=== PATIENT | male | born 1950 | race Caucasian/White ===

== ENCOUNTER 2016-12-20 17:07 | Inpatient (IN) | payer BC, OTHER ==
[~2016-12-20] VITALS: Ht 185.4 cm; Wt 84.8 kg
--- NOTE | 2016-12-20 18:00 | DIAGNOSTIC IMAGING REPORT ---
CHEST ONE VIEW PORTABLE CLINICAL HISTORY: Atypical chest pain. Arrhythmia. COMPARISON STUDY: No previous studies for comparison. FINDINGS: The cardiac and mediastinal contours are normal. There is no evidence of focal pulmonary consolidation. There is no evidence of failure. No pleural effusions are visualized.[ There is possible underlying emphysema. Differential attenuation of the hemithoraces is felt to be secondary to technical factors. IMPRESSION: No active disease in the chest. Electronically signed by: Marvel Fierro M.D. 12/20/2016 5:59 PM Dictated Date/Time: 12/20/2016 5:58 PM
[2016-12-20 18:01] LABS: BASO % 0.3 %; BASO ABS # 0.02 K/uL (0-0.2); COMPLETE YES; HEMATOCRIT 43.8 % (42-52); LYMPH % 26.1 %; LYMPH ABS # 1.91 K/uL (1.2-3.4); MEAN CELL VOLUME 93.8 fL (80-100); MEAN CORPUSCULAR HEMOGLOBIN 33.8 pg (25-34); MEAN CORPUSCULAR HGB CONC 36.1 g/dl (32-36); MEAN PLATELET VOLUME 9.7 fL (7.4-10.4); MONO % 12.6 %; PLATELET COUNT 283 K/uL (130-400); RED BLOOD COUNT 4.67 M/uL (4.7-6.1); WHITE BLOOD COUNT 7.31 K/uL (4.8-10.8)
[2016-12-20 18:15] LABS: BLOOD UREA NITROGEN 19 mg/dl (7-18); BUN/CREATININE RATIO 15.6 (10-20); CALCIUM 9.2 mg/dl (8.5-10.1); CARBON DIOXIDE 27 mmol/L (21-32); CHLORIDE 105 mmol/L (98-107); GLUCOSE 79 mg/dl (70-99); POTASSIUM 4.2 mmol/L (3.5-5.1); SODIUM 140 mmol/L (136-145)
[2016-12-20 18:20] LABS: CKMB/CK RATIO 1.2 (0-3.0)
[2016-12-20] MEDS ORDERED: FLEC100T21 PO (18:28)
[2016-12-20] MEDS ORDERED: ATOR10TA82 PO (18:28)
[2016-12-20] MEDS ORDERED: LISI-461 PO (18:28)
[2016-12-20] MEDS ORDERED: XRL10 PO (18:28)
[2016-12-20] MEDS ORDERED: ASPIRIN 81 MG CHEW PO STA (18:55)
[2016-12-20] MEDS ORDERED: FLECAINIDE ACETATE 100 MG TAB PO SCH (20:00)
[2016-12-20] MEDS ORDERED: ONDANSETRON INJ 2 MG/ML 2 ML VIAL IV PRN (23:15)
[2016-12-20] MEDS ORDERED: ACETAMINOPHEN 325 MG TAB PO PRN (23:15)
[2016-12-20] MEDS ORDERED: POLYETHYLENE (MIRALAX) 17 GM PACK PO PRN (23:15)
[2016-12-20] MEDS ORDERED: MAGNESIUM HYDROXIDE SUSP 30 ML UDC PO PRN (23:15)
[2016-12-20] MEDS ORDERED: ENOXAPARIN 1 MG/KG SQ SCH (23:15)
[2016-12-20] MEDS ORDERED: ALUMINUM/MAGNESIUM/SIMETH (MAALOX MAX) 30 ML UDC PO PRN (23:15)
[2016-12-20] MEDS ORDERED: MoRPHine SULFATE 2 MG/ML CARP IV PRN (23:15)
--- NOTE | 2016-12-20 23:22 | History and Physical ---
History & Physical Date & Time of Service: Dec 20, 2016 at 23:14 Chief Complaint: Irregular Heart Beat Primary Care Physician: Johann Hinson M.D. History of Present Illness Source: patient 66 y/o M Hx paroxysmal Aflutter on Flecainide and Xarelto. Pt has been having intermittent palpitations for approximately 3 days. He had on episode of stabbing central CP at 4:30 PM which he thought felt more limited to his chest wall at the site of previous surgery. He denies SOB, N/V, diaphoresis or lightheadedness. The pain is nonradiating and had resolved at the time of admission. An EKG was obtained in the ER which revealed a A flutter with a controlled rate. At the request of his steel rod buster, he is admitted for probable cardioversion. Past Medical/Surgical History 1) Pectus excavatum - underwent thoracic surgery at age 18 2) HTN 3) HPL 4) Paroxysmal A flutter Family History Patient reports no known family medical history. Social History social organization professor at [employer] Smoking Status: Never Smoker Allergies Coded Allergies: Penicillins (Unverified Allergy, Severe, RASH OVER BODY, 12/20/16) Home Medications Scheduled Atorvastatin (Lipitor), 10 MG PO DAILY Flecainide (Tambocor), 100 MG PO BID Lisinopril (Zestril), 10 MG PO DAILY Rivaroxaban (Xarelto), 1 TAB PO DAILY Review of Systems Constitutional: No fever, No chills, No sweats Eyes: No worsening of vision, No eye pain ENT: No hearing loss, No unusual epistaxis, No nasal symptoms Respiratory: No cough, No sputum, No wheezing, No shortness of breath, No dyspnea on exertion, No dyspnea at rest Cardiovascular: + chest pain, No orthopnea, No PND Abdomen: No pain, No nausea, No vomiting Musculoskeletal: No joint pain Genitourinary - Male: No hematuria Neurologic: No memory loss, No paralysis, No weakness Psychiatric: No depression symptoms Endocrine: No fatigue Hematologic / Lymphatic: No abnormal bleeding/bruising Integumentary: No rash Allergic / Immunologic: No environmental allergies Physical Exam Vital Signs Date Time Temp Pulse Resp B/P (MAP) Pulse Ox O2 Delivery O2 Flow Rate FiO2 12/20/16 22:26 80 18 108/84 97 Room Air 12/20/16 21:25 67 12/20/16 20:48 70 20 142/92 98 Room Air 12/20/16 18:54 70 20 130/95 98 12/20/16 17:30 79 12/20/16 17:13 36.7 83 18 118/78 96 Room Air General Appearance: WD/WN, no apparent distress Head: normocephalic, atraumatic Eyes: normal inspection, PERRL, EOMI ENT: normal ENT inspection, hearing grossly normal, TMs normal, pharynx normal Neck: supple, no adenopathy, thyroid normal, no JVD Respiratory/Chest: chest non-tender, lungs clear, normal breath sounds, no respiratory distress, no accessory muscle use, + pertinent finding (pectus excavatum) Cardiovascular: no edema, no gallop, no JVD, no murmur, + irregularly irregular Abdomen/GI: normal bowel sounds, non tender, soft Back: normal inspection, no CVA tenderness, no muscle spasm, normal range of motion Extremities/Musculoskelatal: normal inspection, no calf tenderness, normal capillary refill, no pedal edema, normal range of motion Neurologic/Psych: knocker out II-XII nml as tested, no motor/sensory deficits, alert, normal mood/affect, normal reflexes, oriented x 3 Skin: normal color, warm/dry, no rash Diagnostics Laboratory Results Results Past 24 Hours Test 12/20/16 17:35 12/20/16 19:49 Range/Units White Blood Count 7.31 4.8-10.8 K/uL Red Blood Count 4.67 4.7-6.1 M/uL Hemoglobin 15.8 14.0-18.0 g/dL Hematocrit 43.8 42-52 % Mean Corpuscular Volume 93.8 80-100 fL Mean Corpuscular Hemoglobin 33.8 25-34 pg Mean Corpuscular Hemoglobin Concent 36.1 32-36 g/dl Platelet Count 283 130-400 K/uL Mean Platelet Volume 9.7 7.4-10.4 fL Neutrophils (%) (Auto) 57.0 % Lymphocytes (%) (Auto) 26.1 % Monocytes (%) (Auto) 12.6 % Eosinophils (%) (Auto) 4.0 % Basophils (%) (Auto) 0.3 % Neutrophils # (Auto) 4.17 1.4-6.5 K/uL Lymphocytes # (Auto) 1.91 1.2-3.4 K/uL Monocytes # (Auto) 0.92 0.11-0.59 K/uL Eosinophils # (Auto) 0.29 0-0.5 K/uL Basophils # (Auto) 0.02 0-0.2 K/uL RDW Standard Deviation 42.3 36.4-46.3 fL RDW Coefficient of Variation 12.4 11.5-14.5 % Immature Granulocyte % (Auto) 0.0 % Immature Granulocyte # (Auto) 0.00 0.00-0.02 K/uL Sodium Level 140 136-145 mmol/L Potassium Level 4.2 3.5-5.1 mmol/L Chloride Level 105 98-107 mmol/L Carbon Dioxide Level 27 21-32 mmol/L Anion Gap 8.0 3-11 mmol/L Blood Urea Nitrogen 19 7-18 mg/dl Creatinine 1.20 0.60-1.40 mg/dl Est Creatinine Clear Calc Drug Dose 68.4 ml/min Estimated GFR () 72.6 Estimated GFR (Non- 62.6 BUN/Creatinine Ratio 15.6 10-20 Random Glucose 79 70-99 mg/dl Calcium Level 9.2 8.5-10.1 mg/dl Total Creatine Kinase 94 39-308 U/L Creatine Kinase MB 1.1 0.5-3.6 ng/ml Creatine Kinase MB Ratio 1.2 0-3.0 Troponin I < 0.015 < 0.015 0-0.045 ng/ml EKG A flutter - rate 60-70 BPM Impression Assessment and Plan 66 y/o M Hx paroxysmal Aflutter on Flecainide and Xarelto. Pt has been having intermittent palpitations for approximately 3 days. He had on episode of stabbing central CP at 4:30 PM which he thought felt more limited to his chest wall at the site of previous surgery. He denies SOB, N/V, diaphoresis or lightheadedness. The pain is nonradiating and had resolved at the time of admission. An EKG was obtained in the ER which revealed a A flutter with a controlled rate. At the request of his steel rod buster, he is admitted for probable cardioversion. 1) Persistent A flutter - we are advised on overnight observation by hos steel rod buster as his flutter is symptomatic. He will receive a double dose of his Flecainide this mata and is anticoagulated with Xarelto. 2) CP - we cannot be entirely sure that this is unrelated to his AF - will obtain serial enzymes and monitor on telemetry - has not recurred since afternoon 3) HTN - Cont Lisinopril 4) HPL - Cont Statin Full code - anticoag with Xarelto Total time for this admit including review of labs, meds, EKG - discussion with pt and ER attending - 33 min VTE Prophylaxis VTE Risk Assessment Done? Y/N: Yes Risk Level: Low Given or contraindicated: Enoxaparin (Lovenox)SQ
[2016-12-20 23:59] VITALS: BP 133/90; PULSE 75; TEMP 36.6; O2SAT 99; Ht 185.4 cm; Wt 84.8 kg
[2016-12-21] VITALS (10 sets, daily range): BP systolic 113–156; BP diastolic 74–95; PULSE 54–70; TEMP 36.4–36.6; O2SAT 96–100
[2016-12-21] MEDS: D5W AND NSS 1,000 ML IV SCH ×2 (00:22→09:15)
--- NOTE | 2016-12-21 01:47 | EMERGENCY ROOM VISIT NOTE ---
History Report prepared by Conrad: Mikhail Rockwell Under the Supervision of: Dr. Greg Sanchez D.O. First contact with patient: 17:32 Chief Complaint: IRREGULAR HEARTBEAT Stated Complaint: IRREGULAR HEART BEAT History of Present Illness The patient is a 66 year old male who presents to the Emergency Room with complaints of an intermittent irregular heartbeat beginning two days ago. The patient states that he has had symptoms like this before and was diagnoses with A-Fib. He reports that it typically lasts for a day and goes away. The patient notes that it does not feel like he is in A-Fib, but he knows it is irregular. He states that he is currently taking Flecainide and Xarelto. The patient reports that he was taking Metoprolol for his hypertension but had a reaction to it, and he is not on Lisinopril. He states that he stopped taking his medication because his hypertension stopped and his current symptoms began. The patient complains of intermittent musculoskeletal chest pain that started around an hour ago. He notes that exertion does not increase his discomfort. 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 He reports that he has a history of previous blood clots. Source of History: patient Onset: 2 days ago Position: other (heart) Quality: other (irregular rhythm) Timing: intermittent Associated Symptoms: + chest pain Review of Systems See HPI for pertinent positives & negatives. A total of 10 systems reviewed and were otherwise negative. Past Medical & Surgical Medical Problems: (1) Atrial fibrillation Family History Patient reports no known family medical history. Social History Smoking Status: Never Smoker Marital Status: Current/Historical Medications Scheduled Atorvastatin (Lipitor), 10 MG PO DAILY Flecainide (Tambocor), 100 MG PO BID Lisinopril (Zestril), 10 MG PO DAILY Rivaroxaban (Xarelto), 1 TAB PO DAILY Allergies Coded Allergies: Penicillins (Unverified Allergy, Severe, RASH OVER BODY, 12/20/16) Physical Exam Vital Signs Date Time Temp Pulse Resp B/P (MAP) Pulse Ox O2 Delivery O2 Flow Rate FiO2 12/20/16 22:26 80 18 108/84 97 Room Air 12/20/16 21:25 67 12/20/16 20:48 70 20 142/92 98 Room Air 12/20/16 18:54 70 20 130/95 98 12/20/16 17:30 79 12/20/16 17:13 36.7 83 18 118/78 96 Room Air Physical Exam GENERAL: alert, well appearing, well nourished, no distress, non-toxic, sitting up in bed EYE EXAM: normal conjunctiva, PERRL and EOM's grossly intact OROPHARYNX: no exudate, no erythema, lips, buccal mucosa, and tongue normal and mucous membranes are moist NECK: supple, no nuchal rigidity, no adenopathy, non-tender LUNGS: Clear to auscultation. Normal chest wall mechanics HEART: no murmurs, irregular irregular rhythm ABDOMEN: abdomen soft, non-tender, normo-active bowel sounds, no masses, no rebound or guarding. BACK: Back is symmetrical on inspection and there is no deformity, no midline tenderness, no CVA tenderness. SKIN: no rashes and no bruising UPPER EXTREMITIES: upper extremities are grossly normal. LOWER EXTREMITIES: No pitting edema. Calves are equal bilateral NEURO EXAM: Normal sensorium, cranial nerves II-XII intact, normal speech, no weakness of arms, no weakness of legs. No drift. Finger to nose intact. Gross sensation intact. Medical Decision & Procedures ER Provider Diagnostic Interpretation: Radiology results as stated below per my review and the radiologist's interpretation: CHEST ONE VIEW PORTABLE CLINICAL HISTORY: Atypical chest pain. Arrhythmia. COMPARISON STUDY: No previous studies for comparison. FINDINGS: The cardiac and mediastinal contours are normal. There is no evidence of focal pulmonary consolidation. There is no evidence of failure. No pleural effusions are visualized.[ There is possible underlying emphysema. Differential attenuation of the hemithoraces is felt to be secondary to technical factors. IMPRESSION: No active disease in the chest. Electronically signed by: Marvel Fierro M.D. 12/20/2016 5:59 PM Dictated Date/Time: 12/20/2016 5:58 PM Laboratory Results 12/20/16 17:35 Red Blood Count 4.67, Mean Corpuscular Volume 93.8, Mean Corpuscular Hemoglobin 33.8, Mean Corpuscular Hemoglobin Concent 36.1, Mean Platelet Volume 9.7, Neutrophils (%) (Auto) 57.0, Lymphocytes (%) (Auto) 26.1, Monocytes (%) (Auto) 12.6, Eosinophils (%) (Auto) 4.0, Basophils (%) (Auto) 0.3, Neutrophils # (Auto ) 4.17, Lymphocytes # (Auto) 1.91, Monocytes # (Auto) 0.92, Eosinophils # (Auto ) 0.29, Basophils # (Auto) 0.02 12/20/16 17:35 Test 12/20/16 17:35 White Blood Count 7.31 K/uL (4.8-10.8) Red Blood Count 4.67 M/uL (4.7-6.1) Hemoglobin 15.8 g/dL (14.0-18.0) Hematocrit 43.8 % (42-52) Mean Corpuscular Volume 93.8 fL (80-100) Mean Corpuscular Hemoglobin 33.8 pg (25-34) Mean Corpuscular Hemoglobin Concent 36.1 g/dl (32-36) Platelet Count 283 K/uL (130-400) Mean Platelet Volume 9.7 fL (7.4-10.4) Neutrophils (%) (Auto) 57.0 % Lymphocytes (%) (Auto) 26.1 % Monocytes (%) (Auto) 12.6 % Eosinophils (%) (Auto) 4.0 % Basophils (%) (Auto) 0.3 % Neutrophils # (Auto) 4.17 K/uL (1.4-6.5) Lymphocytes # (Auto) 1.91 K/uL (1.2-3.4) Monocytes # (Auto) 0.92 K/uL (0.11-0.59) Eosinophils # (Auto) 0.29 K/uL (0-0.5) Basophils # (Auto) 0.02 K/uL (0-0.2) RDW Standard Deviation 42.3 fL (36.4-46.3) RDW Coefficient of Variation 12.4 % (11.5-14.5) Immature Granulocyte % (Auto) 0.0 % Immature Granulocyte # (Auto) 0.00 K/uL (0.00-0.02) Anion Gap 8.0 mmol/L (3-11) Est Creatinine Clear Calc Drug Dose 68.4 ml/min Estimated GFR () 72.6 Estimated GFR (Non- 62.6 BUN/Creatinine Ratio 15.6 (10-20) Calcium Level 9.2 mg/dl (8.5-10.1) Total Creatine Kinase 94 U/L (39-308) Creatine Kinase MB 1.1 ng/ml (0.5-3.6) Creatine Kinase MB Ratio 1.2 (0-3.0) Laboratory results per my review. Medications Administered Medications (Trade) Dose Ordered Sig/Beth Route Start Time Stop Time Status Last Admin Dose Admin Aspirin (Aspirin Chew) 324 mg NOW STAT PO 12/20/16 18:55 12/20/16 18:56 DC 12/20/16 19:04 324 MG Flecainide Acetate (Tambocor Tab) 200 mg NOW PO 12/20/16 20:00 12/21/16 01:00 DC 12/21/16 00:22 200 MG ECG Indication: chest pain Rate (beats per minute): 65 Rhythm: atrial flutter Findings: other (variable block left axis) ED Course ED COURSE: Vital signs were reviewed and showed normal signs. The patients medical record was reviewed The above diagnostic studies were performed and reviewed. ED treatments and interventions as stated above. 1738: The patient was evaluated in room C10. A complete history and physical examination was performed. 1854: Ordered Aspirin 324 mg PO 1856: I reevaluated the patient and updated him of his exam findings. 1915: I discussed the patient's case with Dr. Salguero, Cardiology. He states the patient can be given 200mg of Flexon and discharged with a cardiovert on Friday , or the patient can be treated inpatient and have a cardiovert tomorrow. 1953: Upon reevaluation, the patient is resting. I discussed my findings and consult with the patient and he understands and agrees with the treatment plan. 1999: Ordered Flecainide Acetate 200 mg PO 2013: I discussed the patient's case with Dr. Mendoza, [facility] Hospitalist. The patient will be evaluated for further treatment. Based on the patients age, coexisting illnesses, exam and lab findings the decision to treat as an inpatient was made. The patient remained stable while under my care. The patient will be evaluated for further management. Medical Decision Differential diagnoses includes but is not limited to acute coronary syndrome, myocardial infarction, pericarditis, pulmonary embolus, aortic dissection, pneumonia, pneumothorax, musculoskeletal, shingles, esophageal. Medication Reconciliation: I attest that I have personally reviewed the patient' s current medication list. Blood pressure screening: Patient was found to have normal blood pressure on screening and does not require follow-up. Patient is a 66-year-old male who presents the ER for palpitations was has been present for the past 2 days. He has had a history of paroxysmal A. fib. He is on rivaroxaban and flecainide. EKG shows atrial flutter with a variable block. Chest x-ray was unremarkable. Troponin was negative. Patient did have intermittent left-sided chest pain associated with this. He does feel very weak and tired. Patient last ate and drank under 4 hours ago. Discussed with cardiology recommended cardioversion versus follow-up as an outpatient. Patient preferred to have this treated now as he is symptomatic. He was given a double dose of flecainide per cardiology and admitted for possible cardioversion in the morning. With his nothing by mouth status as this is elective I elected not to cardiovert him while in the ER. Consults Time Called: 1913 Consulting Physician: Dr. Salguero, Cardiology Returned Call: 1915 I discussed the patient's case with Dr. Salguero, Cardiology. He states the patient can be given 200mg of Flexon and discharged with a cardiovert on Friday , or the patient can be treated inpatient and have a cardiovert tomorrow. Additional Consults: Time Called: 2010 Consulted Physician: Dr. Mendoza, [facility] Hospitalist Returned Call: 2012 Additional Comments: I discussed the patient's case with Dr. Mendoza, [facility] Hospitalist. The patient will be evaluated for further treatment. Impression Primary Impression: Atrial flutter Additional Impression: Chest pain Scribe Attestation The scribe's documentation has been prepared under my direction and personally reviewed by me in its entirety. I confirm that the note above accurately reflects all work, treatment, procedures, and medical decision making performed by me. Departure Information Dispostion Being Evaluated By Hospitalist Referrals Johann Hinson M.D. (PCP) Patient Instructions My [facility] Problem Qualifiers Primary Impression: Atrial flutter Atrial flutter type: unspecified Qualified Codes: I48.92 - Unspecified atrial flutter Additional Impression: Chest pain Chest pain type: unspecified Qualified Codes: R07.9 - Chest pain, unspecified
[2016-12-21] MEDS ORDERED: NURSING VERBAL MED ORDER ONE (08:00)
[2016-12-21] MEDS ORDERED: FLECAINIDE ACETATE 100 MG TAB PO SCH (09:00)
[2016-12-21] MEDS ORDERED: LISINOPRIL 10 MG TAB PO SCH (09:00)
[2016-12-21] MEDS ORDERED: ATORVASTATIN 10 MG TAB PO SCH ×2 (09:00→21:00)
[2016-12-21] MEDS ORDERED: RIVAROXABAN 10 MG TAB PO SCH ×2 (09:00→21:00)
[2016-12-21] MEDS ORDERED: LIDOCAINE HCL 2% 2 ML VIAL (20MG/ML) ONE (09:22)
[2016-12-21] MEDS ORDERED: PROPOFOL IV EMULSION 10 MG/ML 20 ML VIAL IV ONE (09:22)
--- NOTE | 2016-12-21 10:04 | CARDIOLOGY CONSULTATION ---
DATE OF CONSULTATION: 12/21/2016 REFERRING PHYSICIAN: Dr. Luis Mendoza. CHIEF COMPLAINT: Palpitations. HISTORY OF PRESENT ILLNESS: Mr. Seth Borden is a 66-year-old gentleman with a known history of atrial fibrillation, who reported the onset of palpitations and fatigue early morning. The patient states that these are typical symptoms for an episode of atrial fibrillation. He has had similar episodes over the years, but the diagnosis was not made until approximately 1 year ago. Based on the recurrent nature of the symptoms, he is also started on flecainide and presented to the Emergency Room yesterday evening due to the persistent nature of the arrhythmia. He has some associated symptoms which include prominent fatigue and an element of activity intolerance. He denies significant dyspnea or chest discomfort. He did have what he describes as a very superficial discomfort on the anterior chest, which he attributes to stress. He denied any sense of dizziness or lightheadedness. He has not recently suffered a syncopal episode. He claims to be compliant with his medications, specifically the Xarelto. In the past, he appears to have been on metoprolol, but had lower heart rates and this was discontinued. Of note, the patient does consume alcohol on a daily basis. He states perhaps 1-2 drinks most days, sometimes 3 or 4. He does report slightly heavier alcohol use the evening prior to development of this arrhythmia. At the time of this interview, the patient claims to be feeling well. He still has a sense of palpitations and overall fatigue. He has aforementioned superficial chest discomfort. Otherwise, he claims to be feeling well. PAST MEDICAL HISTORY: 1. The aforementioned atrial fibrillation. 2. Hypertension. 3. Hyperlipidemia. 4. Cataract. PAST SURGICAL HISTORY: Includes right eye catheter surgery and repair of pectus excavatum as an adolescent. OUTPATIENT MEDICATIONS: Include flecainide 100 mg twice daily, lisinopril which he just started, rivaroxaban and atorvastatin. MEDICAL ALLERGIES: PENICILLIN. SOCIAL HISTORY: The patient is currently employed as professor at [employer]. He is a lifelong nonsmoker, alcohol use as detailed above. FAMILY HISTORY: No family history of premature coronary disease. REVIEW OF SYSTEMS: A complete review of systems was performed and the pertinent positives noted in the history of present illness, the remainder being negative. He denies any recent constitutional symptoms such as fevers, chills, he has had no recent GI complaints such as nausea, vomiting or diarrhea. He denies any swelling in his lower extremities. He has been refraining from exercise recently due to recommendations after the cataract surgery. Otherwise, he is a very active and enjoys weight lifting and bicycling. PHYSICAL EXAMINATION: GENERAL: The patient does not appear to have any acute distress. He is a pleasant individual who is alert and oriented. His mood and affect appeared normal. He answered all questions appropriately. VITAL SIGNS: Include blood pressure 148/76, his pulse was 68. HEENT: His sclerae are anicteric. Extraocular movements appear to be intact. NECK: Palpation of submandibular region revealed palpable carotid pulses bilaterally without bruits on auscultation. There is no submandibular lymphadenopathy. There was no evidence of jugular venous distention. Thyroid was not enlarged. LUNGS: Auscultation of both lungs revealed them to be clear. There were no rales, wheezes or rhonchi. He had good respiratory effort without use of accessory muscles. CARDIOVASCULAR: Revealed him to be in an irregularly irregular rhythm. There were no murmurs appreciated; however. ABDOMEN: Soft and nontender. EXTREMITIES: Evaluation of both wrists revealed radial pulses that were equal in intensity. There is no evidence of cyanosis or clubbing. Evaluation of lower extremities did not reveal any significant peripheral edema. There were no rashes on examination today. NEUROLOGIC: Revealed intact cranial nerves. LABORATORY STUDIES: Obtained since admission include a white cell count of 7.3, hemoglobin of 15.8, a platelet count of 283. Sodium is 140, potassium is 4.2, BUN was 19, creatinine was 1.2. Serial cardiac biomarkers were all less than detectable limit. The patient had a single view chest x-ray obtained at the time of admission, which did not reveal any active cardiopulmonary disease. A 12-lead EKG was also obtained at the time of admission which revealed the patient to be in atrial flutter with a controlled ventricular response. He had left anterior fascicular block, and a poor R-wave progression in precordial leads. ASSESSMENT AND PLAN: 1. Atrial flutter: I think this does characterizes the appearance of his rhythm on an EKG. He has variable conduction and there is a small possibility that this truly represent atrial fibrillation with a course atrial signature. Nonetheless, extra dose of flecainide last night failed to convert his rhythm. It is very possible that he has both atrial fibrillation which tends to resolve itself and within 24 hours as well as atrial flutter which is more persistent. Given the persistent nature of his symptoms and his desire to return to sinus rhythm, it seems appropriate at this point to arrange for electrocardioversion. The patient has been appropriately anticoagulated for an extended period of time which makes the risk of the procedure low. With his return to sinus rhythm, we can maintain him on the flecainide and continue to monitor his efficacy over time. There is a possibility that he has recurrent events and will require alternative therapy. If that is the case, catheter based treatment could be entertained either with pulmonary vein isolation who has had documented atrial fibrillation or simply CTI ablation if his primary rhythm has always been atrial flutter. All records are not currently available due to computer update. I discussed the procedure with the patient including the risks, benefits and alternatives as well as making arrangements with the anesthesiology service. We will plan on proceeding later today. YRN
--- NOTE | 2016-12-21 10:18 | Anesthesiology Progress Note ---
Anesthesia Post Op Note Date & Time Dec 21, 2016 at 10:17 Vital Signs Pain Intensity: 0.0 Vital Signs Past 12 Hours Date Time Temp Pulse Resp B/P (MAP) Pulse Ox O2 Delivery O2 Flow Rate FiO2 12/21/16 09:58 70 16 156/95 98 Nasal Cannula 12/21/16 07:26 36.5 68 16 148/76 (100) 99 Room Air 12/21/16 04:00 96 Room Air 12/21/16 04:00 36.5 56 20 113/74 (87) 96 Room Air 12/20/16 23:59 36.6 75 20 133/90 99 Room Air 12/20/16 23:43 72 20 151/92 98 12/20/16 23:17 74 20 132/90 97 Room Air 12/20/16 22:26 80 18 108/84 97 Room Air Notes Mental Status: alert / awake / arousable, participated in evaluation Pt Amnestic to Procedure: Yes Nausea / Vomiting: adequately controlled Pain: adequately controlled Airway Patency, RR, SpO2: stable & adequate BP & HR: stable & adequate Hydration State: stable & adequate Anesthetic Complications: no major complications apparent Pt had uneventful cardioversion for atrial flutter under IV sedation. In SR, awake, talking, moving all extremities when I left. Post-op vitals: BP 134/83, HR 52, RR 16, SpO2 100% on 4L NC, T 36.5.
--- NOTE | 2016-12-21 10:49 | CARDIOVERSION ---
DATE OF OPERATION: 12/21/2016 PROCEDURE PERFORMED: 1. Electrocardioversion. STAFF DIRECTOR OF REAL ESTATE: Dr. Syed Dickey. INDICATION: Mr. Seth Borden is a 66-year-old gentleman with a history of atrial fibrillation, admitted to [facility] with what appears to be atrial flutter. The rhythm has been sustained and associated with symptoms. Medical cardioversion failed and he presents now for electrocardioversion. PROCEDURE IN DETAIL: The patient was informed of the risks, benefits and alternatives to the intended procedure. He understood such risk to proceed. He was anesthetized with a general anesthetic by the anesthesiology service. Once appropriately anesthetized, the patient underwent cardioversion using 30 joules delivered in a biphasic fashion. This returned the patient initially to a junctional rhythm and then sinus bradycardia. The rhythm was confirmed with an EKG. The patient was neurologically intact. Subsequent to the procedure, there are no immediate complications. IMPRESSION: Once successful cardioversion from atrial flutter to sinus bradycardia. I attest to the content of the Intraoperative Record and any orders documented therein. Any exception s are noted below.
--- NOTE | 2016-12-21 11:36 | Discharge Instructions ---
Discharge Instructions Date of Service Dec 21, 2016. Admission Reason for Admission: Atrial Fibrillation Discharge Discharge Diagnosis / Problem: Atrial Fibrillation s/p cardio version Discharge Goals Goal(s): Decrease discomfort, Improve function, Increase independence, Improve disease control, Improve nutritional status, Learn about illness, Diagnostic testing, Therapeutic intervention, Prevent Disease Progression, Specific goals Activity Recommendations Activity Limitations: resume your previous activity . Instructions / Follow-Up Instructions / Follow-Up you have afib cardioverted with electrocardioversion. you have chest pain likely related to a fib - you need to follow up with your primary care physician in 1 week - you need to follow up with your swimming pool installer and servicer as instructed - take medication as instructed, never overdose or any misuse, or take with alcohol, because misuse of medicine may cause organ damage or , call your primary care physician if have questions of medicaitons. - call your primary care physician OR go to local emergency room if has any fever/chill, chest pain, shortness of breathing, nausea/vomiting/abdominal pain , facial droop/slurry speech/local weakness, or if has any questions. - fall precaution - diet as instructed - you need to follow up with your subspecialist - you should understand that it is important to follow up the above instruction , and "not following the above instruction" may cause delayed or missed care of your medical conditions which may cause permanent organ damage and even . Current Hospital Diet Patient's current hospital diet: AHA Diet (Heart Healthy) Discharge Diet Recommended Diet: AHA Diet (Heart Healthy) Procedures Procedures Performed: Cardioversion Pending Studies Studies pending at discharge: no Medical Emergencies . Who to Call and When: Medical Emergencies: If at any time you feel your situation is an emergency, please call 911 immediately. . Non-Emergent Contact Non-Emergency issues call your: Primary Care Provider, Box Person . . "Provider Documentation" section prepared by Roberto Arriola. . VTE Core Measure Inpt VTE Proph given/why not?: Enoxaparin (Lovenox)SQ
--- NOTE | 2016-12-21 12:23 | Discharge Summary ---
Discharge Summary Date of Service Dec 21, 2016. Discharge Summary Admission Date: Dec 20, 2016 at 23:11 Discharge Date: Dec 21, 2016 Discharge Disposition: Home Principal Diagnosis: afib/flutter s/p electrocardioversion. Problems/Secondary Diagnoses: you have afib cardioverted with electrocardioversion. you have chest pain likely related to a fib - you need to follow up with your primary care physician in 1 week - you need to follow up with your welding machine operator/tender as instructed - take medication as instructed, never overdose or any misuse, or take with alcohol, because misuse of medicine may cause organ damage or , call your primary care physician if have questions of medicaitons. - call your primary care physician OR go to local emergency room if has any fever/chill, chest pain, shortness of breathing, nausea/vomiting/abdominal pain , facial droop/slurry speech/local weakness, or if has any questions. - fall precaution - diet as instructed - you need to follow up with your subspecialist - you should understand that it is important to follow up the above instruction , and "not following the above instruction" may cause delayed or missed care of your medical conditions which may cause permanent organ damage and even . Procedures: electrocardioversion. Consultations: Boatswain'S Mate Medication Reconciliation Continued Medications: Atorvastatin (Lipitor) 10 Mg Tab 10 MG PO DAILY, TAB Flecainide (Tambocor) 100 Mg Tab 100 MG PO BID, TAB Lisinopril (Zestril) 10 Mg Tab 10 MG PO DAILY, TAB Rivaroxaban (Xarelto) 10 Mg Tab 1 TAB PO DAILY, TAB Discharge Exam Doing well reading computer, no complaint Review of Systems: Constitutional: No fever, No chills, No sweats, No weight loss, No weakness , No fatigue, No problem reported Eyes: No worsening of vision, No eye pain, No redness, No discharge, No diplopia, No problem reported ENT: No hearing loss, No unusual epistaxis, No nasal symptoms, No sore throat, No tinnitus, No dental problems, No trouble swallowing, No problem reported Respiratory: No cough, No sputum, No wheezing, No shortness of breath, No dyspnea on exertion, No dyspnea at rest, No hemoptysis, No problem reported Cardiovascular: No chest pain, No orthopnea, No PND, No edema, No claudication, No palpitations, No problem reported Abdomen: No pain, No nausea, No vomiting, No diarrhea, No constipation, No GI bleeding, No problem reported Genitourinary - Male: No hematuria, No dysuria, No urinary frequency, No urinary urgency, No urinary hesitancy, No urinary retention, No urinary incontinence, No penile discharge, No lesions, No impotence, No problem reported Neurologic: No memory loss, No paralysis, No weakness, No numbness/tingling , No vertigo, No balance problems, No problem reported Psychiatric: No depression symptoms, No anhedonism, No anxiety, No insomnia , No substance abuse, No problem reported Endocrine: No fatigue, No excessive thirst, No excessive urination, No problem reported Hematologic / Lymphatic: No abnormal bleeding/bruising, No clotting problems , No swollen lymph nodes, No night sweats, No problem reported Integumentary: No rash, No itch, No new/changing skin lesions, No color change, No bleeding, No problem reported Physical Exam: General Appearance: WD/WN, no apparent distress Eyes: normal inspection, PERRL, EOMI ENT: normal ENT inspection, hearing grossly normal, TMs normal Neck: supple, no adenopathy, thyroid normal Respiratory/Chest: chest non-tender, normal breath sounds, no respiratory distress, no accessory muscle use, + decreased breath sounds Cardiovascular: regular rate, rhythm, no edema, no gallop Abdomen / GI: normal bowel sounds, non tender, soft, no organomegaly Extremities: normal inspection, no calf tenderness, normal capillary refill , no pedal edema, normal range of motion Neurologic/Psychiatric: web applications architect II-XII nml as tested, no motor/sensory deficits , alert, normal mood/affect, normal reflexes Skin: normal color, warm/dry Hospital Course 66-year-old gentleman admitted on 12/20/2016 because of A. fib, he has a known history of atrial fibrillation, reported the onset of palpitations and fatigue early morning. He reported these are typical symptoms for an episode of atrial fibrillation. He has had similar episodes over the years, but the diagnosis was not made until approximately 1 year ago. He follow-up with welding machine operator/tender and is on flecainide , associated symptoms which include prominent fatigue and an element of activity intolerance. He denies significant dyspnea or chest discomfort, did have what he describes as a very superficial discomfort on the anterior chest, which he attributes to stress. He denied any sense of dizziness or lightheadedness. After admitting to the draughtsman, cardiology cardioverted him, has been continued doing well, cardiology feel he can go home There was report of chest pain or chest discomfort in the medical record, patient denied real chest pain, and cardiology to feel this is not real chest pain and cardiac enzyme troponin is negative 3 sets, welding machine operator/tender recommend " do not need to do any more for further workup for now". In the discharge instruction I did cautious patient to report to emergency room immediately if has chest pain. Cardiology cleared her to go home without any medicine changes , will keep the Flecainide at the same dose at 100 mg by mouth daily. Patient discharged in stable condition. Discharge instruction you have afib cardioverted with electrocardioversion. you have chest pain likely related to a fib - you need to follow up with your primary care physician in 1 week - you need to follow up with your welding machine operator/tender as instructed - take medication as instructed, never overdose or any misuse, or take with alcohol, because misuse of medicine may cause organ damage or , call your primary care physician if have questions of medicaitons. - call your primary care physician OR go to local emergency room if has any fever/chill, chest pain, shortness of breathing, nausea/vomiting/abdominal pain , facial droop/slurry speech/local weakness, or if has any questions. - fall precaution - diet as instructed - you need to follow up with your subspecialist - you should understand that it is important to follow up the above instruction , and "not following the above instruction" may cause delayed or missed care of your medical conditions which may cause permanent organ damage and even . Total Time Spent: Less than 30 minutes This includes examination of the patient, discharge planning, medication reconciliation, and communication with other providers. Discharge Instructions Please refer to the electronic Patient Visit Report (Discharge Instructions) for additional information. Additional Copies To Johann Hinson M.D.; Syed Dickey MD
--- NOTE | 2016-12-21 13:21 | ECHOCARDIOGRAM REPORT ---
*NOTICE TO RECEIVING REPUBLICAN AGENCY This information is strictly Confidential and protected under [place] law. [place] law prohibits you from making any further disclosure of this information unless further disclosure is expressly permitted by the written consent of the person to whom it pertains or is authorized by law. A general authorization for the release of medical or other information is not sufficient for this purpose. Hospital accepts no responsibility if the information is made available to any other person, INCLUDING THE PATIENT. Interpretation Summary * Name: NEHA CARDOZA Study Date: 12/21/2016 08:58 AM BP: 148/76 mmHg * Patient Location: C.2T\S\E222\S\1 HR: 68 * : 1950 (M/d/yyyy) Gender: Male Height: 73 in * Age: 66 yrs Ethnicity: CA Weight: 186 lb * Ordering Physician: Roberto Arriola * Performed By: Myra Moses * * Reason For Study: A-FIB * BSA: 2.1 m2 * -- Conclusions -- * There is mild concentric left ventricular hypertrophy. * Left ventricular systolic function is normal. Procedure Details * A complete two-dimensional transthoracic echocardiogram was performed (2D, M-mode, Doppler and color flow Doppler). * A contrast injection of Definity was performed to improve assessment of LV function. * Contrast was injected into an intravenous site in the right arm. * One vial of Definity ultrasound contrast was diluted in normal saline to a total volume of 10 ml. A total of '2' ml of solution was administered during imaging. * Lot # [id number] of Definity utilized for procedure. * Expiration date 12/29. * The attending nurse who injected the contrast agent was LADONNA EPSTEIN RN. Left Ventricle * The left ventricle is normal in size. * There is mild concentric left ventricular hypertrophy. * Ejection Fraction = 60-65%. * Left ventricular systolic function is normal. Right Ventricle * The right ventricle is normal in size and function. Atria * The left atrial size is normal. * Right atrial size is normal. Mitral Valve * The mitral valve leaflets appear thickened, but open well. * Significant mitral regurgitation is absent. Tricuspid Valve * The tricuspid valve is not well visualized, but is grossly normal. * Significant tricuspid regurgitation is absent. Aortic Valve * The aortic valve is normal in structure and function. * The aortic valve is trileaflet. * No hemodynamically significant valvular aortic stenosis. * There is no significant aortic regurgitation. Pericardium/Pleural * There is no pericardial effusion. Great Vessels * Normal inferior vena cava diameter and respiratory variation suggests normal central venous pressure. MMode 2D Measurements and Calculations IVSd 1.3 cm IVSs 1.8 cm LVIDd 4.1 cm LVIDs 2.7 cm LVPWd 1.4 cm LVPWs 2.1 cm IVS/LVPW 0.90 FS 34.0 % EDV(Teich) 73.5 ml ESV(Teich) 26.9 ml EF(Teich) 63.5 % EDV(cubed) 68.1 ml ESV(cubed) 19.6 ml EF(cubed) 71.3 % % IVS thick 44.5 % % LVPW thick 52.3 % LV mass(C)d 199.3 grams LV mass(C)dI 95.5 grams/m\S\2 LV mass(C)s 229.0 grams LV mass(C)sI 109.8 grams/m\S\2 SV(Teich) 46.7 ml SI(Teich) 22.4 ml/m\S\2 SV(cubed) 48.6 ml SI(cubed) 23.3 ml/m\S\2 ACS 1.6 cm LA dimension 3.9 cm asc Aorta Diam 3.1 cm LVOT diam 2.0 cm LVOT area 3.2 cm\S\2 LVAd ap4 33.5 cm\S\2 LVLd ap4 8.4 cm EDV(MOD-sp4) 108.2 ml EDV(sp4-el) 113.6 ml LVAs ap4 18.5 cm\S\2 LVLs ap4 6.8 cm ESV(MOD-sp4) 41.0 ml ESV(sp4-el) 42.8 ml EF(MOD-sp4) 62.1 % EF(sp4-el) 62.3 % LVAd ap2 28.2 cm\S\2 LVLd ap2 8.0 cm EDV(MOD-sp2) 82.0 ml EDV(sp2-el) 85.1 ml LVAs ap2 15.7 cm\S\2 LVLs ap2 6.5 cm ESV(MOD-sp2) 31.4 ml ESV(sp2-el) 32.3 ml EF(MOD-sp2) 61.7 % EF(sp2-el) 62.1 % LVLd %diff -5.45 % EDV(MOD-bp) 95.2 ml LVLs %diff -3.63 % ESV(MOD-bp) 36.2 ml EF(MOD-bp) 62.0 % SV(MOD-sp4) 67.2 ml SI(MOD-sp4) 32.2 ml/m\S\2 SV(MOD-sp2) 50.6 ml SI(MOD-sp2) 24.2 ml/m\S\2 SV(MOD-bp) 59.0 ml SI(MOD-bp) 28.3 ml/m\S\2 SV(sp4-el) 70.8 ml SI(sp4-el) 33.9 ml/m\S\2 SV(sp2-el) 52.8 ml SI(sp2-el) 25.3 ml/m\S\2 Doppler Measurements and Calculations MV E max lei 84.6 cm/sec MV dec time 0.31 sec Ao V2 max 121.3 cm/sec Ao max PG 5.9 mmHg Ao max PG (full) 0.55 mmHg YOHAN(V,A) 3.1 cm\S\2 YOHAN(V,D) 3.1 cm\S\2 LV V1 max PG 5.3 mmHg LV V1 max 115.5 cm/sec PA V2 max 85.2 cm/sec PA max PG 2.9 mmHg
== END 2016-12-21 13:13 | disposition home or self-care (01) | DRG 310 ==
LOC: C.EDB 17:08 → C.2T 23:11 → ENRESERV 23:37
PROVIDERS: ADMIT Internal Medicine; ATTEND Hospitalist
PROC: 5A2204Z Restoration of Cardiac Rhythm, Single (ICD-10-PCS; principal; 2016-12-21)
DX: I48.92 Unspecified atrial flutter (principal); I48.91 Unspecified atrial fibrillation; I10 Essential (primary) hypertension; E78.5 Hyperlipidemia, unspecified; Z79.01 Long term (current) use of anticoagulants

== ENCOUNTER → 2017-02-13 | Outpatient (CLI) | payer BC ==
[~2017-02-13] MED LIST: ATOR10TA88 PO; FLEC100T21 PO; LISI-461 PO; XRL10 PO
--- NOTE | 2017-02-13 07:52 | DIAGNOSTIC IMAGING REPORT ---
KUB CLINICAL HISTORY: 66 years-old Male presenting with nephrolithiasis. TECHNIQUE: Single supine view of the abdomen was obtained. COMPARISON: 12/19/2015. FINDINGS: Evaluation of the kidneys is limited due to the presence of overlying stool. Allowing for this limitation, stable position of the left lower pole renal calculus, which measures 5 mm. Multiple phleboliths noted in the pelvis. Moderate stool burden throughout the colon. No pneumoperitoneum. Lung bases clear. Degenerative changes at L4-5. IMPRESSION: 1. Stable position appearance of the 5 mm left lower pole renal calculus. Electronically signed by: Guerrero Sánchez M.D. 02/13/2017 7:50 AM Dictated Date/Time: 02/13/2017 7:48 AM
== END | disposition home or self-care (01) ==
LOC: C.RAD 07:01
PROVIDERS: ATTEND Urology
DX: N20.0 Calculus of kidney (principal); N40.0 Benign prostatic hyperplasia without lower urinary tract symptoms

== ENCOUNTER → 2017-04-25 | Outpatient (CLI) | payer BC ==
[2017-04-25 12:22] LABS: ALB/GLOB RATIO 1.3 (0.9-2); ALKALINE PHOSPHATASE 93 U/L (45-117); ALT/SGPT 28 U/L (12-78); AST/SGOT 21 U/L (15-37); BLOOD UREA NITROGEN 17 mg/dl (7-18); BUN/CREATININE RATIO 15.3 (10-20); CALCIUM 9.2 mg/dl (8.5-10.1); CARBON DIOXIDE 27 mmol/L (21-32); CHLORIDE 106 mmol/L (98-107); CHOLESTEROL 124 mg/dl (0-200); GLUCOSE 107 mg/dl (70-99); HDL CHOLESTEROL 61 mg/dl; LDL CHOLESTEROL CALCULATED 53 mg/dl; POTASSIUM 4.5 mmol/L (3.5-5.1); SODIUM 140 mmol/L (136-145); TRIGLYCERIDES 51 mg/dl (0-150); VERY LOW DENSITY LIPOPROT CALC 10 mg/dl
== END | disposition home or self-care (01) ==
LOC: C.LABBC 07:41
PROVIDERS: ATTEND Internal Medicine Geriatric Medicine
DX: I10 Essential (primary) hypertension (principal); E78.5 Hyperlipidemia, unspecified

== ENCOUNTER → 2017-11-20 | Outpatient (CLI) | payer OTHER ==
[~2017-11-20] MED LIST changes: +ATOR10TA82 PO; -ATOR10TA88 PO; +OPTIRAY 320 IV PRN
--- NOTE | 2017-11-20 08:35 | DIAGNOSTIC IMAGING REPORT ---
CT ABD/PELVIS COMBO CLINICAL HISTORY: R31.0 Gross hematuria NPR per Roberto [facility] ref#[id number] COMPARISON STUDY: 05/17/2014 TECHNIQUE: Unenhanced images were obtained through the abdomen and pelvis. The patient was injected with 50 cc of Optiray 320. After and January, the patient is rescanned in a dynamic helical fashion during the additional administration of 71 cc of Optiray 320. A dose lowering technique was utilized adhering to the principles of ALARA. CT DOSE: 1487.47 mGycm FINDINGS: Lower chest: There are mild dependent atelectatic changes. Liver: The contrast-enhanced liver is normal in size, contour, and attenuation. There is no intrahepatic biliary ductal dilatation. The hepatic veins and portal veins are patent. Gallbladder: Unremarkable. Spleen: Normal in size and attenuation. Pancreas: Unremarkable. Adrenal glands: Unremarkable. Kidneys: There is incomplete right renal rotation. No renal calculi are visualized. There is a 4.5 mm distal left ureteral calculus just superior to the left ureterovesical junction. There is minimal secondary fullness of the left renal collecting system. No renal masses are visualized. No ureteral lesions are visualized. There is a tiny bladder diverticulum versus small ureterocele at the level the left ureteral orifice. Bowel: There are no transition zones indicate bowel obstruction. The appendix appears normal. There is colonic diverticulosis. There are no acute peridiverticular inflammatory changes. Peritoneum: There is no intraperitoneal free air or abdominal ascites. There is small fat-containing right inguinal hernia. Vasculature: The abdominal aorta is normal in course and caliber. Adenopathy: There is a allison mesentery unchanged from the prior study with minimally prominent central mesenteric lymph nodes. Pelvic viscera: There is mild prostamegaly. Skeletal structures: There is disc space narrowing with mild endplate erosive change at the L4-5 level. IMPRESSION: 1. 4.5 mm distal left ureteral calculus. No evidence of high-grade obstruction. 2. Stable small ureterocele versus bladder diverticulum near the left ureteral orifice 3. No solid renal masses identified Electronically signed by: Marvel Fierro M.D. 11/20/2017 8:34 AM Dictated Date/Time: 11/20/2017 8:25 AM
== END | disposition home or self-care (01) ==
LOC: C.CTS 07:50
PROVIDERS: ATTEND Nurse Practitioner Family
DX: R31.0 Gross hematuria (principal)

== ENCOUNTER → 2017-11-26 | Outpatient (CLI) | payer OTHER ==
[~2017-11-26] MED LIST changes: -OPTIRAY 320 IV PRN
--- NOTE | 2017-11-26 07:39 | DIAGNOSTIC IMAGING REPORT ---
KUB CLINICAL HISTORY: N20.0 [id number] COMPARISON STUDY: 02/13/2017 FINDINGS: Bowel gas and fecal material partially obscures the renal shadows. No definite renal calculi are visualized. There is a new 7 mm left pelvic basin calcification. A distal left ureteral calculus must be considered. Please correlate with patient's symptoms. IMPRESSION: 1. No renal calculi identified on conventional radiographic imaging. 2. New 7 mm left pelvic basin calcification. This could represent a distal left ureteral calculus, and clinical correlation is advocated. Electronically signed by: Marvel Fierro M.D. 11/26/2017 7:38 AM Dictated Date/Time: 11/26/2017 7:35 AM
== END | disposition home or self-care (01) ==
LOC: C.RAD 07:16
PROVIDERS: ATTEND Nurse Practitioner Family
DX: N20.0 Calculus of kidney (principal)

== ENCOUNTER → 2018-02-12 | Day surgery (SDC) | payer OTHER ==
[2018-01-21 13:39] VITALS: BMI 24.0
[~2018-02-12] VITALS: Ht 185.4 cm; Wt 84.1 kg
[~2018-02-12] MED LIST changes: +ATROPINE SULFATE 0.1 MG/ML 5ML SYR IV PRN; +CIPR-255 PO; +CIPROFLOXACIN / D5W 400 MG IV SCH; +Cysto-Conray II 17.2% 250ML BOTTLE ONE; +EpHEDrine SULFATE INJ 50 MG/ML AMP IV PRN; +FENTANYL CITRATE INJ 50 MCG/1 ML 2 ML VIAL ONE; +HydrALAZINE HCL 20 MG/ML VIAL IV. STA; +HydrALAZINE HCL 20 MG/ML VIAL ONE; +LACTATED RINGER'S 1000ML 1,000 ML IV SCH; +LIDOCAINE 2% 20 MG/ML 5ML SYR ONE; -LISI-461 PO; +MIDAZOLAM HCL 1 MG/ML 2ML VIAL ONE; +ONDANSETRON INJ 2 MG/ML 2 ML VIAL ONE; +OXYC-57 PO; +OXYCODONE/ACETAMINOPHEN 5-325 TAB PO PRN; +PHEN-775 PO; +PHENAZOPYRIDINE HCL 200 MG TAB PO PRN; +PROPOFOL IV EMULSION 10 MG/ML 20 ML VIAL ONE
[2018-02-12 10:46] VITALS: BP 157/87; PULSE 53; TEMP 36.6; O2SAT 99; Ht 185.4 cm; Wt 84.1 kg
--- NOTE | 2018-02-12 11:21 | History & Physical Bridge Note ---
H&P Re-Evaluation Bridge Note: I have examined the patient, reviewed the History & Physical and in the interval since the performance of the History & Physical I have noted the following changes of clinical significance: No changes noted
--- NOTE | 2018-02-12 13:25 | Discharge Instructions ---
Discharge Instructions Date of Service Feb 12, 2018. Admission Reason for Admission: Left Distal Ureteral Stone Discharge Discharge Diagnosis / Problem: L distal stone s/p uscope, laser litho and stent Discharge Goals Goal(s): Decrease discomfort, Improve disease control, Therapeutic intervention Activity Recommendations Activity Limitations: as noted below Lifting Limitations: no more than 25 pounds, gradually increase as tolerated Exercise/Sports Limitations: rest today, gradually increase as tolerated May Resume Sexual Activity: when tolerated Shower/Bathe: no limitations Driving or Machine Use: resume 1 day after discharge . Instructions / Follow-Up Instructions / Follow-Up In office as scheduled for cystoscopy and stent removal with KUB Xray beforehand Current Hospital Diet Patient's current hospital diet: Discharge Diet Recommended Diet: Regular Diet (good fluid intake) Procedures Procedures Performed: Cystoscopy, left retrograde pyelography, left semirigid ureteroscopy with basket stone extraction and ureteral stent placement. Pending Studies Studies pending at discharge: yes List of pending studies: Stone for chemical analysis Medical Emergencies . Who to Call and When: Medical Emergencies: If at any time you feel your situation is an emergency, please call 911 immediately. . Non-Emergent Contact Non-Emergency issues call your: Urologist Call Non-Emergent contact if: you have a fever, temperature is above 101, your pain is not controlled, your pain is worsening, your pain is unusual for you, your pain is concerning you, you have any medication questions . . "Provider Documentation" section prepared by Jack Moses. . [place] Drug Monitoring Program Search Results: patient reviewed within database, no issues identified
--- NOTE | 2018-02-12 13:55 | Anesthesiology Progress Note ---
Anesthesia Post Op Note Date & Time Feb 12, 2018 at 13:55 Vital Signs Pain Intensity: 0 Vital Signs Past 12 Hours Date Time Temp Pulse Resp B/P (MAP) Pulse Ox O2 Delivery O2 Flow Rate FiO2 02/12/18 10:46 36.6 53 18 157/87 (110) 99 Room Air Notes Mental Status: alert / awake / arousable, participated in evaluation Pt Amnestic to Procedure: Yes Nausea / Vomiting: adequately controlled Pain: adequately controlled Airway Patency, RR, SpO2: stable & adequate BP & HR: stable & adequate Hydration State: stable & adequate Anesthetic Complications: no major complications apparent
--- NOTE | 2018-02-12 13:59 | [facility] Operative Report ---
Operative Report Operative Date Feb 12, 2018. Pre-Operative Diagnosis Left distal ureteral stone Post-Operative Diagnosis Left distal ureteral stone Ureterocele Hutch's diverticulum Procedure(s) Performed Cystoscopy, left retrograde pyelography, left semirigid ureteroscopy with basket stone extraction and ureteral stent placement. Surgeon Dr. Jack Moses MD [employer] Surgeon(s) None Estimated Blood Loss 0ml Findings Stone trapped within his left ureterocele, good stent placement at the end of the case, stone able to be removed intact by basket Specimens A. Left ureteral stone( for analysis) Drains 6 [place] 28 cm loop stent on the left-hand side Anesthesia Type General Complication(s) none Disposition no Recovery Room / PACU Indications 67-year-old male with a persistent left-sided ureteral stone despite shockwave lithotripsy here for endoscopic management. Please see H&P for further details. Intravenous ciprofloxacin provided for antibiotic coverage and SCDs used for DVT prophylaxis. Description of Procedure Patient was properly identified and brought into the operative suite after identification for proper consent in the chart. General anesthesia with laryngeal mask was initiated and patient was prepped and draped in standard fashion for this procedure. Full timeout procedure was followed. 22 [place] rigid cystoscope was passed into the bladder under direct visualization and bladder was surveyed in its entirety including 30 and 70 lenses demonstrating no intravesical lesions, papillary tumors or stones. Mild lateral lobe obstruction of the prostate was noted. Left-sided ureterocele and Hutch's diverticulum was again appreciated and the left ureter was noted to be effluxing clear yellow urine. Ureter was cannulated using an angled sensor wire which was advanced up to the level of the left renal pelvis and kept as a safety wire until the end of the case. Semirigid ureteroscope was easily advanced into the ureter over a second straight sensor tip wire as a working wire. Stone was encountered within the ureterocele and able to be basketed with a 0 tip nitinol basket and removed intact. This was sent for chemical analysis. Ureteroscope was readvanced up to the level of the proximal ureter through a dilated system without evidence of residual stone, stricture or ureteral abnormalities. Complete exit ureteroscopy was performed demonstrating the lack of ureteral injury. Cystoscope was backloaded over the safety wire and a 6 [place] 28 cm loop stent was advanced with a coil at the level of the left renal pelvis and redundant loops present within the bladder. Hydronephrotic drip was appreciated. Bladder was drained and cystoscope was removed. Anesthesia was reversed and patient was transferred to the recovery room in stable condition. Follow-up CARE: Patient will be discharged home with a prescription for Pyridium , Percocet and ciprofloxacin. Outpatient appointment for cystoscopy and stent removal is confirmed. Patient is instructed to contact our service should he note any fevers, chills, nausea, vomiting or other difficulties in the postoperative period. I attest to the content of the Intraoperative Record and any orders documented therein. Any exceptions are noted below.
--- NOTE | 2018-02-12 14:21 | DIAGNOSTIC IMAGING REPORT ---
L RETROGRADE INCLUDES KUB HISTORY: LEFT LASER LITHOTRIPSY FLUOROSCOPY TIME: 25 seconds. FINDINGS: 6 fluoroscopic spot images were submitted for review. Initial images demonstrate retrograde opacification of the left ureter with placement of a guidewire. This is followed by placement of a left ureteral stent. Only the proximal portion of the stent is identified and appears to be in good position. IMPRESSION: Fluoroscopy provided for left ureteral stent placement. Electronically signed by: Khadar Lorenzo M.D. 02/12/2018 2:19 PM Dictated Date/Time: 02/12/2018 2:18 PM
--- NOTE | 2018-02-12 14:51 | Anesthesiology Progress Note ---
Anesthesia Post Op Note Date & Time Feb 12, 2018 at 14:51 Vital Signs Pain Intensity: 0 Vital Signs Past 12 Hours Date Time Temp Pulse Resp B/P (MAP) Pulse Ox O2 Delivery O2 Flow Rate FiO2 02/12/18 14:30 49 13 170/84 100 Room Air 02/12/18 14:20 47 16 159/82 100 Oxymask 10 02/12/18 14:10 49 15 146/92 100 Oxymask 02/12/18 14:03 36.4 50 16 137/84 100 Oxymask 10 02/12/18 10:46 36.6 53 18 157/87 (110) 99 Room Air Notes Mental Status: alert / awake / arousable, participated in evaluation Pt Amnestic to Procedure: Yes Nausea / Vomiting: adequately controlled Pain: adequately controlled Airway Patency, RR, SpO2: stable & adequate BP & HR: stable & adequate Hydration State: stable & adequate Anesthetic Complications: no major complications apparent
[2018-02-12 14:55] VITALS: BP 176/85; PULSE 49; TEMP 36.4; O2SAT 99
[2018-02-12 15:25] VITALS: BP 189/92; PULSE 50; TEMP 36.4; O2SAT 98
== END | disposition home or self-care (01) ==
LOC: C.ACU 10:28
PROVIDERS: ATTEND Urology
DX: N20.1 Calculus of ureter (principal); N20.0 Calculus of kidney; N28.89 Other specified disorders of kidney and ureter; K57.90 Diverticulosis of intestine, part unspecified, without perforation or abscess without bleeding; I10 Essential (primary) hypertension; I48.0 Paroxysmal atrial fibrillation; M19.90 Unspecified osteoarthritis, unspecified site; Z88.0 Allergy status to penicillin; Z79.899 Other long term (current) drug therapy; E78.5 Hyperlipidemia, unspecified

== ENCOUNTER → 2018-02-16 | Outpatient (CLI) | payer OTHER ==
[~2018-02-16] MED LIST changes: -ATROPINE SULFATE 0.1 MG/ML 5ML SYR IV PRN; -CIPROFLOXACIN / D5W 400 MG IV SCH; -Cysto-Conray II 17.2% 250ML BOTTLE ONE; -EpHEDrine SULFATE INJ 50 MG/ML AMP IV PRN; -FENTANYL CITRATE INJ 50 MCG/1 ML 2 ML VIAL ONE; -HydrALAZINE HCL 20 MG/ML VIAL IV. STA; -HydrALAZINE HCL 20 MG/ML VIAL ONE; -LACTATED RINGER'S 1000ML 1,000 ML IV SCH; -LIDOCAINE 2% 20 MG/ML 5ML SYR ONE; -MIDAZOLAM HCL 1 MG/ML 2ML VIAL ONE; -ONDANSETRON INJ 2 MG/ML 2 ML VIAL ONE; -OXYCODONE/ACETAMINOPHEN 5-325 TAB PO PRN; -PHENAZOPYRIDINE HCL 200 MG TAB PO PRN; -PROPOFOL IV EMULSION 10 MG/ML 20 ML VIAL ONE
[2018-02-16 09:53] LABS: BASO % 0.4 %; BASO ABS # 0.03 K/uL (0-0.2); EOS % 6.4 %; EOS ABS # 0.45 K/uL (0-0.5); HEMATOCRIT 40.9 % (42-52); HEMOGLOBIN 14.1 g/dL (14.0-18.0); IG# 0.01 K/uL (0.00-0.02); LYMPH % 21.1 %; LYMPH ABS # 1.49 K/uL (1.2-3.4); MEAN CELL VOLUME 95.1 fL (80-100); MEAN CORPUSCULAR HEMOGLOBIN 32.8 pg (25-34); MEAN CORPUSCULAR HGB CONC 34.5 g/dl (32-36); MONO % 10.7 %; MONO ABS # 0.76 K/uL (0.11-0.59); NEUT % 61.3 %; NEUT ABS # 4.33 K/uL (1.4-6.5); PLATELET COUNT 259 K/uL (130-400); RED CELL DISTRIBUTION WIDTH CV 12.3 % (11.5-14.5); RED CELL DISTRIBUTION WIDTH SD 41.8 fL (36.4-46.3); WHITE BLOOD COUNT 7.07 K/uL (4.8-10.8)
== END | disposition home or self-care (01) ==
LOC: C.LAB 09:23
PROVIDERS: ATTEND Urology
DX: R31.0 Gross hematuria (principal)

== ENCOUNTER → 2018-02-18 | Outpatient (CLI) | payer OTHER ==
--- NOTE | 2018-02-18 07:30 | DIAGNOSTIC IMAGING REPORT ---
KUB CLINICAL HISTORY: Nephrolithiasis. FINDINGS: 2 AP supine abdominal radiographs are compared to study dated 01/12/2018. Correlation is made with abdominal CT dated 11/20/2017. There is a nonobstructed abdominal bowel gas pattern. Moderate colonic fecal retention is observed. A left ureteral stent has been placed. No calcifications are seen along the course of the stent. There is no radiographic evidence of nephrolithiasis on today's examination. Large pelvic phleboliths are again noted. The skeletal structures are osteopenic. Lumbosacral spondylosis is observed. Lung bases are clear as imaged. IMPRESSION: 1. A left ureteral stent has been placed. No calcifications are seen along the course of the stent. 2. There is no radiographic evidence of nephrolithiasis on today's examination. Electronically signed by: Raimundo Garrett M.D. 02/18/2018 7:29 AM Dictated Date/Time: 02/18/2018 7:27 AM
[2018-02-18 10:06] LABS: BLOOD UREA NITROGEN 15 mg/dl (7-18); CREATININE 1.24 mg/dl (0.60-1.40)
== END | disposition home or self-care (01) ==
LOC: C.RAD 06:49
PROVIDERS: ATTEND Urology
DX: N20.0 Calculus of kidney (principal); Z96.0 Presence of urogenital implants